=== PATIENT | male | born 1985 | race Caucasian/White ===

== ENCOUNTER 2017-03-09 18:45 | Emergency (ER) | payer MEDICAID ==
[~2017-03-09] VITALS: Ht 172.7 cm; Wt 59.9 kg
[~2017-03-09 18:45] MED LIST: NAPR500T3 PO
[2017-03-09 18:48] VITALS: BP 126/84
== END 2017-03-09 19:37 | disposition home or self-care (01) ==
LOC: ED 19:15
DX: Z00.00 Encounter for general adult medical examination without abnormal findings (principal)
CPT/HCPCS: 99281

== ENCOUNTER 2019-09-03 00:16 | Emergency (ER) | payer SELFPAY ==
[~2019-09-03] VITALS: Ht 167.6 cm; Wt 59.9 kg
[~2019-09-03 00:16] MED LIST changes: +NAPR-685 PO; -NAPR500T3 PO
--- NOTE | 2019-09-03 01:20 | NUR ---
THIS IS A 34 YO MALE COMING IN FOR RLQ ABD PAIN FOR THE PAST WEEK, WORSENING THE PAST DAY OR TWO, RADIATING TO RIGHT FLANK, +NAUSEA/DIARRHEA, NO VOMITING. PATIENT STATES NAUSEA "COMES IN WAVES", C/O CHILLS AND BODY ACHES AT HOME. RLQ AND RIGHT FLANK TENDER TO PALPATION. VSS, NAD, CALL LIGHT IN REACH. SPO2 AND BP MONITORING IN PLACE
[2019-09-03] MEDS ORDERED: ONDANSETRON ODT 4 MG ONE (01:23)
[2019-09-03] MEDS ORDERED: KETOROLAC 30 MG/1 ML ONE (01:23)
[2019-09-03] MEDS ORDERED: ACETAMINOPHEN 500 MG TABLET ONE (01:29)
[2019-09-03] MEDS ORDERED: ACETAMINOPHEN 500 MG TABLET PO ONE (01:30)
[2019-09-03] MEDS ORDERED: ONDANSETRON ODT 4 MG PO ONE (01:30)
[2019-09-03] MEDS ORDERED: KETOROLAC 30 MG/1 ML IM ONE (01:30)
--- NOTE | 2019-09-03 01:34 | NUR ---
PATIENT MEDICATED PER EMAR, TOLERATED WELL
[2019-09-03 01:39] LABS: MICROSCOPIC NOT IND
[2019-09-03 01:39] LABS: BASOPHILS # (AUTO) 0.04 x10^3/uL (0-0.1); BASOPHILS % (AUTO) 0 % (0-1); EOSINOPHILS % (AUTO) 2 % (1-7); LYMPHOCYTES # (AUTO) 2.96 x10^3/uL (1-3.4); LYMPHOCYTES % (AUTO) 27 % (22-44); MD NO; MEAN CORPUSCULAR HEMOGLOBIN 32.1 pg (27.5-34.5); MEAN CORPUSCULAR HGB CONC 34.3 g/dL (33.2-36.2); MEAN CORPUSCULAR VOLUME 93.8 fL (81-97); MEAN PLATELET VOLUME 7.2 fL (7.4-10.4); MONOCYTES # (AUTO) 0.71 x10^3/uL (0.2-0.8); MONOCYTES % (AUTO) 7 % (2-9); NEUTROPHILS # (AUTO) 6.99 x10^3/uL (1.8-6.8); NEUTROPHILS % (AUTO) 64 % (42-75); PLATELET COUNT 274 x10^3/uL (130-400); RED BLOOD COUNT 4.14 x10^6/uL (4.38-5.82); RED CELL DISTRIBUTION WIDTH 12.8 % (9.4-14.8)
[2019-09-03 01:40] LABS: CULTURE INDICATED? NO
[2019-09-03 01:47] LABS: ANION GAP 6 mmol/L (5-15); CALCIUM 8.2 mg/dL (8.5-10.1); CHLORIDE 106 mmol/L (98-107); CREATININE 1.15 mg/dL (0.7-1.3)
--- NOTE | 2019-09-03 02:10 | NUR ---
PATIENT AMBULATORY WITH STEADY GAIT TO RESTROOM
[2019-09-03 03:17] VITALS: BP 114/73
--- NOTE | 2019-09-03 03:17 | NUR ---
PT PREVIOUSLY UP FOR DC. ADDITION ORDER PLACED FOR ABD/PELVIS CT.
--- NOTE | 2019-09-03 03:39 | NUR ---
PATIENT TO CT
[2019-09-03] MEDS ORDERED: OMNIPAQUE 350 MG/ML, 100ML BOTTLE ONE (03:46)
--- NOTE | 2019-09-03 04:36 | NUR ---
BRIGHT AGUILAR TO ROOM
--- NOTE | 2019-09-03 04:56 | NUR ---
Patient/Caregiver given discharge instructions and they have confirmed that they understand the instructions. Patient ambulatory with steady gait.
== END 2019-09-03 05:05 | disposition home or self-care (01) ==
LOC: ED 02:47
DX: R10.31 Right lower quadrant pain (principal); R11.2 Nausea with vomiting, unspecified; Z72.9 Problem related to lifestyle, unspecified; R19.7 Diarrhea, unspecified; F17.210 Nicotine dependence, cigarettes, uncomplicated
CPT/HCPCS: 36415; 74177; 80048; 81003; 85025; 99285; Q0162; Q9967

== ENCOUNTER 2019-09-22 13:01 | Emergency (ER) | payer SELFPAY ==
[~2019-09-22] VITALS: Ht 175.3 cm; Wt 58.2 kg
--- NOTE | 2019-09-22 13:42 | NUR ---
COUGH BRANNON NAUSEA FOR 3 WEEKS AND RASH STARTED TODAY
[2019-09-22 14:28] LABS: BASOPHILS # (AUTO) 0.05 x10^3/uL (0-0.1); BASOPHILS % (AUTO) 1 % (0-1); EOSINOPHILS # (AUTO) 0.45 x10^3/uL (0-0.4); EOSINOPHILS % (AUTO) 5 % (1-7); LYMPHOCYTES % (AUTO) 32 % (22-44); MD NO; MEAN CORPUSCULAR HGB CONC 33.6 g/dL (33.2-36.2); MEAN CORPUSCULAR VOLUME 95.3 fL (81-97); MEAN PLATELET VOLUME 7.4 fL (7.4-10.4); MONOCYTES # (AUTO) 0.81 x10^3/uL (0.2-0.8); MONOCYTES % (AUTO) 9 % (2-9); NEUTROPHILS # (AUTO) 4.67 x10^3/uL (1.8-6.8); NEUTROPHILS % (AUTO) 53 % (42-75); PLATELET COUNT 272 x10^3/uL (130-400); RED BLOOD COUNT 4.32 x10^6/uL (4.38-5.82); RED CELL DISTRIBUTION WIDTH 13.5 % (9.4-14.8)
[2019-09-22 14:37] LABS: ALBUMIN 4.2 g/dL (3.4-5.0); ANION GAP 8 mmol/L (5-15); CALCIUM 8.6 mg/dL (8.5-10.1); CHLORIDE 108 mmol/L (98-107)
[2019-09-22 14:49] LABS: CREATININE 1.05 mg/dL (0.7-1.3)
[2019-09-22 15:09] LABS: FREE T4 (FREE THYROXINE) 1.09 ng/dL (0.76-1.46)
[2019-09-22 15:16] VITALS: BP 135/64
--- NOTE | 2019-09-22 15:17 | NUR ---
RESTING WITH EYES CLOSED, NO DISTRESS.
== END 2019-09-22 15:47 | disposition home or self-care (01) ==
LOC: ED 15:37
DX: J00 Acute nasopharyngitis [common cold] (principal); B34.9 Viral infection, unspecified; B09 Unspecified viral infection characterized by skin and mucous membrane lesions; F17.200 Nicotine dependence, unspecified, uncomplicated
CPT/HCPCS: 36415; 71046; 80048; 82040; 84439; 84443; 84481; 85025; 86308; 87081; 87880; 99284

== ENCOUNTER 2020-07-25 18:24 | Emergency (ER) | payer OTHER ==
[~2020-07-25] VITALS: Ht 175.3 cm; Wt 64.0 kg
--- NOTE | 2020-07-25 19:04 | NUR ---
pt to room from lobby
[2020-07-25] MEDS ORDERED: SODIUM CHLORIDE 0.9% 1,000ML IVBOLUS ONE (19:30)
--- NOTE | 2020-07-25 19:46 | NUR ---
PT RESTING IN [facility] AT THIS TIME, PER PT NO NEEDS.
[2020-07-25 20:22] LABS: BASOPHILS % (AUTO) 1 % (0-1); EOSINOPHILS % (AUTO) 1 % (1-7); LYMPHOCYTES % (AUTO) 15 % (22-44); MEAN CORPUSCULAR HEMOGLOBIN 32.4 pg (27.5-34.5); MEAN CORPUSCULAR HGB CONC 34.4 g/dL (33.2-36.2); MEAN PLATELET VOLUME 7.1 fL (7.4-10.4); MONOCYTES % (AUTO) 7 % (2-9); NEUTROPHILS % (AUTO) 77 % (42-75); PLATELET COUNT 238 x10^3/uL (130-400)
[2020-07-25 20:28] LABS: MD NO
[2020-07-25 20:34] LABS: ALBUMIN 4.3 g/dL (3.4-5.0); ANION GAP 6 mmol/L (5-15); CALCIUM 8.6 mg/dL (8.5-10.1); CHLORIDE 107 mmol/L (98-107)
[2020-07-25 20:38] LABS: ALANINE AMINOTRANSFERASE 15 U/L (12-78); ALKALINE PHOSPHATASE 55 U/L (45-117); BILIRUBIN,TOTAL 0.7 mg/dL (0.2-1.0); CREATININE 0.98 mg/dL (0.7-1.3); TOTAL PROTEIN 6.8 g/dL (6.4-8.2)
[2020-07-25 21:54] VITALS: BP 109/58
== END 2020-07-25 21:58 | disposition home or self-care (01) ==
LOC: ED 20:20
DX: J06.9 Acute upper respiratory infection, unspecified (principal); Z20.822 Contact with and (suspected) exposure to COVID-19; R42 Dizziness and giddiness; R00.0 Tachycardia, unspecified
CPT/HCPCS: 36415; 71045; 80053; 82962; 85025; 87635; 93005; 96360; 99285; J7030